=== PATIENT | female | born 2000 | race Caucasian/White ===

== ENCOUNTER 2019-02-11 13:12 | Emergency (ER) | payer OTHER ==
[~2019-02-11] VITALS: Ht 152.4 cm; Wt 50.5 kg
[2019-02-11 13:17] VITALS: Ht 152.4 cm; Wt 50.5 kg
[2019-02-11 14:17] VITALS: BP 111/73
== END 2019-02-11 14:17 | disposition home or self-care (01) ==
LOC: ED 13:12
DX: N75.0 Cyst of Bartholin's gland (principal)